=== PATIENT | female | born 1960 | race African-American/Black ===

== ENCOUNTER 2022-03-07 13:46 | Outpatient (CLI) | payer BC, SELFPAY | END 2022-03-07 13:47 | disposition home or self-care (01) | LOC: ANHAUDIO 13:48 | PROVIDERS: PCP Family Medicine; Visit Provider Otolaryngology | DX: H91.91 Unspecified hearing loss, right ear (principal) | CPT/HCPCS: 92557; 92567 ==

== ENCOUNTER 2022-10-02 00:48 | Day surgery (SDC) | payer BC, SELFPAY ==
[2022-09-21 09:21] VITALS: BMI 37.3
[2022-10-02 09:01] VITALS: BP 146/93; PULSE 94; RESP 18; TEMP 35.9; O2SAT 99
[2022-10-02 09:19] LABS: Glucose Point of Care 121 mg/dl (65-105)
[2022-10-02] MEDS: LACTATED RINGERS 1,000 ML 150 ML IV CONT (09:28)
--- NOTE | 2022-10-02 09:33 | PM.HPGS ---
History of Present Illness History of Present Illness Consent: Risks, benefits, and alternatives have been discussed and questions answered. Patient agrees to proceed with procedure. Chief complaint: neoplasm screening Narrative: Monica Chen is a 62 year old female Presents for screening colonoscopy. Patient's current weight appetite and bowel movements are normal. Patient denies abdominal pain. She has had no bleeding. Family history noncontributory. Review of Systems Review of Systems: Review of systems noncontributory. [facility] Past Medical History Medical History Diabetes Heel spur Hypertension Mild persistent asthma with exacerbation Mixed hyperlipidemia Obstructive sleep apnea syndrome Vitamin D deficiency Surgical History Surgical History History of cholecystectomy History of foot surgery heel spur removal History of shoulder surgery Family History Family History Father Diabetes mellitus Hypertension Family history of diabetes mellitus in first degree relative Family history of coronary artery disease Patient's father is Sibling Diabetes mellitus Hypertension Family history of gout Family history of coronary artery disease Family history of type 2 diabetes mellitus Patient's brother is in good health Family history of cardiovascular disease Family history of congestive heart failure Mother Family history of hypercholesterolemia Hypertension Family history of elevated blood lipids Grandparent Cerebrovascular accident Social History Social History Smoking status: Never smoker Second hand tobacco smoke exposure: No Alcohol intake: never Substance use: never Substance use type: does not use Living arrangements: with family Gender identity (if verbalized by the patient): Female Spiritual care concerns: No Meds Home Medications and Allergies Home Medications Medication Instructions Recorded Confirmed Type fexofenadine 180 mg tablet 180 mg PO DAILY #30 tabs 10/31/20 09/21/22 Rx (Allergy Relief (fexofenadine)) albuterol sulfate 90 mcg/actuation 1 inh inhalation Q4H PRN shortness 03/20/22 09/21/22 Rx aerosol inhaler of breath or wheezing #8.5 grams metformin 500 mg tablet See Rx Instructions .Route 07/06/22 09/21/22 Rx .COMPLEX #60 tabs dapagliflozin 5 mg tablet (Farxiga) 5 mg PO DAILY #30 tabs 08/06/22 09/21/22 Rx losartan 50 mg tablet 50 mg PO DAILY #30 tabs 08/11/22 09/21/22 Rx ergocalciferol (vitamin D2) 1,250 1,250 mcg PO WEEKLY #14 caps 08/21/22 09/21/22 Rx mcg (50,000 unit) capsule (Vitamin D2) montelukast 10 mg tablet 10 mg PO DAILY #90 tabs 08/21/22 09/21/22 Rx (Singulair) sodium,potassium,mag sulfates 17.5 See Rx Instructions PO .COMPLEX 09/03/22 09/21/22 Rx gram-3.13 gram-1.6 gram oral soln #354 mL (Suprep Bowel Prep Kit) hydrochlorothiazide 12.5 mg tablet See Rx Instructions .Route 09/14/22 09/21/22 Rx .COMPLEX #90 tabs amlodipine 10 mg tablet See Rx Instructions .Route 09/30/22 10/02/22 Rx .COMPLEX #90 tabs simvastatin 20 mg tablet See Rx Instructions .Route 09/30/22 10/02/22 Rx .COMPLEX #90 tabs Allergies Allergy/AdvReac Type Severity Reaction Status Date / Time codeine Allergy Unknown Vomiting Verified 10/02/22 09:00 Vital Signs Vital Signs - 24 hr 10/02/22 09:01 Temperature 96.7 F L Pulse Rate 94 Respiratory Rate 18 Blood Pressure 146/93 H Pulse Oximetry 99 Oxygen Delivery Room Air Exam Narrative: Physical exam reveals patient to be alert. Vital signs stable. HEENT exam is unremarkable. Patient is anicteric. Lungs are clear to auscultation and percussion. Heart is without murmur or extra sounds. Abdomen bowel soun
--- NOTE | 2022-10-02 10:03 | WPDANESEPPF ---
Anes - Initial Pre Proc Eval Procedure: Operation Date: 10/02/22 10:30 Proposed Procedures p Screening Colonoscopy - Jh Siddiqui MD Date/Time: 10/02/22 10:03 Surgeon: Jh Siddiqui MD Pre Op Diagnosis: neoplasm screening Patient Data Age: 62 Gender: F Height: 1.7 m Weight: 99.6 kg Last Vital Signs Temp 96.7 F L 10/02/22 09:01 Pulse 94 10/02/22 09:01 Resp 18 10/02/22 09:01 BP 146/93 H 10/02/22 09:01 Pulse Ox 99 10/02/22 09:01 O2 Del Method Room Air 10/02/22 09:01 Allergies Allergy/AdvReac Type Severity Reaction Status Date / Time codeine Allergy Unknown Vomiting Verified 10/02/22 09:00 Home Medications Medication Instructions Recorded Confirmed Type fexofenadine 180 mg tablet 180 mg PO DAILY #30 tabs 10/31/20 09/21/22 Rx (Allergy Relief (fexofenadine)) albuterol sulfate 90 mcg/actuation 1 inh inhalation Q4H PRN shortness 03/20/22 09/21/22 Rx aerosol inhaler of breath or wheezing #8.5 grams metformin 500 mg tablet See Rx Instructions .Route 07/06/22 09/21/22 Rx .COMPLEX #60 tabs dapagliflozin 5 mg tablet (Farxiga) 5 mg PO DAILY #30 tabs 08/06/22 09/21/22 Rx losartan 50 mg tablet 50 mg PO DAILY #30 tabs 08/11/22 09/21/22 Rx ergocalciferol (vitamin D2) 1,250 1,250 mcg PO WEEKLY #14 caps 08/21/22 09/21/22 Rx mcg (50,000 unit) capsule (Vitamin D2) montelukast 10 mg tablet 10 mg PO DAILY #90 tabs 08/21/22 09/21/22 Rx (Singulair) sodium,potassium,mag sulfates 17.5 See Rx Instructions PO .COMPLEX 09/03/22 09/21/22 Rx gram-3.13 gram-1.6 gram oral soln #354 mL (Suprep Bowel Prep Kit) hydrochlorothiazide 12.5 mg tablet See Rx Instructions .Route 09/14/22 09/21/22 Rx .COMPLEX #90 tabs amlodipine 10 mg tablet See Rx Instructions .Route 09/30/22 10/02/22 Rx .COMPLEX #90 tabs simvastatin 20 mg tablet See Rx Instructions .Route 09/30/22 10/02/22 Rx .COMPLEX #90 tabs Laboratory Tests 10/02/22 09:08 POC Capillary Glucose 121 mg/dl H mg/dl (65-105) Patient hx anesthesia problems: none Family hx anesthesia problems: none Results Review: All pre-operative results and documents have been reviewed as part of the pre-operative evaluation. [facility] Past Medical History Medical History Diabetes Heel spur Hypertension Mild persistent asthma with exacerbation Mixed hyperlipidemia Obstructive sleep apnea syndrome Vitamin D deficiency Surgical History Surgical History History of cholecystectomy History of foot surgery heel spur removal History of shoulder surgery Family History Family History Father Diabetes mellitus Hypertension Family history of diabetes mellitus in first degree relative Family history of coronary artery disease Patient's father is Sibling Diabetes mellitus Hypertension Family history of gout Family history of coronary artery disease Family history of type 2 diabetes mellitus Patient's brother is in good health Family history of cardiovascular disease Family history of congestive heart failure Mother Family history of hypercholesterolemia Hypertension Family history of elevated blood lipids Grandparent Cerebrovascular accident Social History Social History Smoking status: Never smoker Second hand tobacco smoke exposure: No Alcohol intake: never Substance use: never Substance use type: does not use Living arrangements: with family Gender identity (if verbalized by the patient): Female Spiritual care concerns: No Anes - Eval Final PreProcedure Day of Procedure 10/02/22 10:03 Patient weight: normal Heart: regular rate and rhythm Lungs: clear to auscultation Airway: Mallampati scale class II Neurologic
[2022-10-02] MEDS: SIMETHICONE ORAL SUSPENSION 20 MG/0.3 ML 30 ML BOTTLE 0.6 ML IRRIGATION (10:13)
[2022-10-02 10:26] VITALS: BP 93/64; PULSE 81; RESP 26; O2SAT 96
[2022-10-02 10:36] VITALS: BP 112/77; PULSE 76; RESP 25; O2SAT 98
[2022-10-02 10:46] VITALS: BP 118/86; PULSE 62; RESP 16; O2SAT 97
== END 2022-10-02 11:03 | disposition home or self-care (01) ==
PROVIDERS: PCP Family Medicine; Visit Provider Internal Medicine Gastroenterology
PROC: 0DJD8ZZ Inspection of Lower Intestinal Tract, Via Natural or Artificial Opening Endoscopic (ICD-10-PCS; CPT 45378; principal; 2022-10-02 10:30)
DX: Z12.11 Encounter for screening for malignant neoplasm of colon (principal); K64.8 Other hemorrhoids; K57.30 Diverticulosis of large intestine without perforation or abscess without bleeding; E11.9 Type 2 diabetes mellitus without complications; I10 Essential (primary) hypertension; J45.30 Mild persistent asthma, uncomplicated; E78.2 Mixed hyperlipidemia; G47.33 Obstructive sleep apnea (adult) (pediatric); E55.9 Vitamin D deficiency, unspecified; Z79.51 Long term (current) use of inhaled steroids; Z79.84 Long term (current) use of oral hypoglycemic drugs
CPT/HCPCS: 45378; 82948; J2704; J7120

== ENCOUNTER 2024-09-22 09:56 | Outpatient (CLI) | payer MEDICARE, SELFPAY ==
[2024-09-22 10:48] LABS: Basophils Percent Auto 0.9 % (0.2-1.2); Eosinophils Absolute Auto 0.1 K/mm3 (0-0.3); Eosinophils Percent Auto 3.1 % (0-4.4); Hematocrit 47.6 % (37.0-47.0); Hemoglobin 14.3 g/dL (12.0-15.0); Immature Granulocyte Absolute 0.01 K/mm3 (0.00-0.031); Immature Granulocyte Percent A 0.2 % (0-0.5); Lymphocytes Absolute Auto 2.12 K/mm3 (0.9-3.2); Lymphocytes Percent Auto 50.1 % (18.3-44.2); Mean Corpuscular Hemoglobin 23.3 pg (26-34); Mean Corpuscular Volume 77.7 fl (80-100); Mean Platelet Volume 10.5 fl (7.4-10.4); Monocytes Absolute Auto 0.4 K/mm3 (0.1-0.6); Monocytes Percent Auto 9.2 % (2.6-8.5); Neutrophils Absolute Auto 1.5 K/mm3 (1.3-6.7); Neutrophils Percent Auto 36.5 % (45.5-73.1); Platelet Count Result 285 k/mm3 (150-375); Red Blood Count 6.13 M/mm3 (4.2-5.4); Red Cell Distribution Width 15.6 % (11.5-14.5); White Blood Count 4.2 K/mm3 (4.5-10.0)
[2024-09-22 11:07] LABS: Alanine Aminotransferase 28 U/L (6-35); Albumin Level 4.6 g/dL (3.5-5.1); Alkaline Phosphatase 49 U/L (38-126); Anion Gap 11 mmol/L (4-12); Aspartate Amino Transferase 24 U/L (14-36); Bilirubin,Total 0.9 mg/dL (0.2-1.3); Blood Urea Nitrogen 18 mg/dL (7-17); Calcium 9.8 mg/dL (8.4-10.2); Carbon Dioxide 28 mmol/L (22-30); Chloride 102 mmol/L (98-107); Cholesterol 195 mg/dL (0-200); Estimated Glomerular Filt Rate > 60; Glucose 110 mg/dL (65-110); HDL Direct 61 mg/dL; Potassium 3.9 mmol/L (3.4-5.0); Sodium 141 mmol/L (137-145); Triglycerides 111 mg/dL (<150)
[2024-09-22 11:18] LABS: LDL Cholesterol Direct 87 mg/dL
[2024-09-22 11:27] LABS: MALB Creatinine Ratio 33.6 mg/g (0-30); Microalbumin Urine Random 51.8 mg/L (0-16.7)
--- OUTSIDE RECORDS SUMMARY | 2024-09-22 11:30 | XMS_ITS | Referral Summary ---
Author Organization [facility] Address [address] [facility] [place] [address] Care Team Providers Care Hoop Riveter Name Role Phone Stephanie Sam MD Primary Care Provider [phone] Allergies Active Allergy Reactions Criticality Noted Date Comments Codeine Stomach upset Low 11/28/2022 Medications No known medications Active Problems No known active problems Social History Tobacco Use Types Packs/Day Years Used Date Smoking Tobacco: Never Assessed Personal Safety Answer Date Recorded Getting School Help Needed Not on file 09/13 Comments Unknown Sex and Gender Information Value Date Recorded Sex Assigned at Not on file 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
--- OUTSIDE RECORDS SUMMARY | 2024-09-22 11:30 | XMS_ITS | Clinical Summary ---
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 Gender Identity Not on file Sexual Orientation Not on file Plan of Treatment Health Maintenance Due Date Last Done Comments Hepatitis C Virus (HCV) Screening 1960 TdaP Immunization 1959 Pap Smear 1980 Cervical Cancer Screening (CCS) 1989 HPV/Cotest 1989 Colonoscopy 2004 Colorectal Cancer Screening 2004 Cologuard 2009 Immunochemical Fecal Occult Blood 2009 Mammogram 2009 Pneumococcal Immunization (5 0+ years) (1 of 1 - PCV) 2009 Zoster Immunization (1 of 2) 2009 Influenza Immunization (#1) 2024 SARS-COV-2 Immunization (2023-25 season) 2024 Respiratory Syncytial Virus (RSV) Immunization (Adult) (1 - 1-dose 75+ series) 2034 Hepatitis B Immunization Aged Out No longer eligible based on patient's age to complete this topic Meningococcal Immunization (ACWY) Aged Out No longer eligible based on patient's age to complete this topic Pneumococcal Immunization Combined Aged Out No longer eligible based on patient's age to complete this topic Rotavirus Immunization Aged Out No lo nger eligible based on patient's age to complete this topic
--- OUTSIDE RECORDS SUMMARY | 2024-09-22 11:30 | XMS_ITS | Clinical Summary ---
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 Gender Identity Not on file Sexual Orientation Not on file Plan of Treatment Health Maintenance Due Date Last Done Comments Breast Cancer Screening-Mammogram 1959 Cervical Cancer Screening 1959 Colon Cancer Screening-Colonoscopy 1959 Depression Screening 1959 Fall Risk Assessment 1959 Hepatitis C Screening 1959 Osteoporosis Screening-Bone Density Scan 1959 Hepatitis B Screening 1977 Pneumococcal vaccine 65+ (1 of 1 - PCV) 2009 Zoster Vaccine (1 of 2) 2009 Covid-19 Vaccine (3 - 2023- season) 03/01/202405/2022, 10/07/2020 Influenza Vaccine (#1) 2024 Well Visit 65+ 2024 DTaP/Tdap/Td Vaccine (2 - Td or Tdap) 08/16/2032 Insurance [facility] Member Subscriber Plan / Payer (Ef fective 1993-Present) Name:Gustavo Monica B Relation to Subscriber:Self Name:Chen Monica Jeremie Payer ID:[id number] (NAIC) Group ID:[id number] Type:[employer] Address: [address] Care Teams As400 Administrator Relationship Specialty Start Date End Date Stephanie Sam MD PCP - General Family Medicine 04/13/19
[2024-09-22 11:37] LABS: Thyroid Stimulating Hormone 0.891 uIU/mL (0.465-4.680)
[2024-09-22 11:38] LABS: Free T4 Free Thyroxine 1.01 ng/dL (0.78-2.19)
[2024-09-22 15:50] LABS: Hemoglobin A1C 6.2 % (<5.7)
== END 2024-09-22 09:57 | disposition home or self-care (01) ==
LOC: ANHLAB 10:00
PROVIDERS: PCP Family Medicine; Visit Provider Student in an Organized Health Care Education/Training Program
DX: R53.83 Other fatigue (principal); I10 Essential (primary) hypertension; E78.2 Mixed hyperlipidemia; E11.9 Type 2 diabetes mellitus without complications; E55.9 Vitamin D deficiency, unspecified
CPT/HCPCS: 36415; 80053; 80061; 82043; 82306; 83036; 84439; 84443; 85025

== ENCOUNTER 2024-10-23 09:40 | Outpatient (CLI) | payer MEDICARE, SELFPAY ==
--- OUTSIDE RECORDS SUMMARY | 2024-10-23 09:51 | XMS_ITS | Referral Summary ---
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
--- OUTSIDE RECORDS SUMMARY | 2024-10-23 09:51 | XMS_ITS | Clinical Summary ---
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
--- OUTSIDE RECORDS SUMMARY | 2024-10-23 09:51 | XMS_ITS | Clinical Summary ---
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 Gender Identity Not on file Sexual Orientation [...] of 2) 2009 Covid-19 Vaccine (3 - season) 03/01/202405/2022, 10/07/2020 Well Visit 65+ 2024 Influenza Vaccine (Season Ended) 2025 DTaP/Tdap/Td Vaccine (2 - Td or Tdap) 08/16/2032 Insurance [facility]ITIONAL [facility] Member Subscriber Plan / Payer (Ef fective 1993-Present) Name:Gustavo Monica B Relation to Subscriber:Self Name:Chen Monica Jeremie Payer ID:[id number] (NAIC) Group ID:[id number] Type:Hycrete Address: [address] Care Teams Core Stacker Relationship Specialty Start Date End Date Stephanie Sam MD PCP - General Family Medicine 04/13/19
[2024-10-23 10:02] LABS: Basophils Absolute Auto 0.1 K/mm3 (0.0-0.1); Basophils Percent Auto 1.3 % (0.2-1.2); Eosinophils Absolute Auto 0.2 K/mm3 (0-0.3); Hematocrit 45.5 % (37.0-47.0); Hemoglobin 13.6 g/dL (12.0-15.0); Immature Granulocyte Absolute 0.01 K/mm3 (0.00-0.031); Immature Granulocyte Percent A 0.2 % (0-0.5); Lymphocytes Percent Auto 45.8 % (18.3-44.2); Mean Corpuscular HGB Conc 29.9 g/dl (32-36); Mean Corpuscular Hemoglobin 23.2 pg (26-34); Mean Corpuscular Volume 77.5 fl (80-100); Mean Platelet Volume 10.1 fl (7.4-10.4); Monocytes Absolute Auto 0.5 K/mm3 (0.1-0.6); Monocytes Percent Auto 10.6 % (2.6-8.5); Neutrophils Absolute Auto 1.8 K/mm3 (1.3-6.7); Neutrophils Percent Auto 38.1 % (45.5-73.1); Platelet Count Result 237 k/mm3 (150-375); Red Blood Count 5.87 M/mm3 (4.2-5.4); Red Cell Distribution Width 14.4 % (11.5-14.5); White Blood Count 4.8 K/mm3 (4.5-10.0)
[2024-10-23 10:17] LABS: Iron 86 ug/dL (37-170)
[2024-10-23 10:28] LABS: Percent Iron Saturation 24 % (20-50)
[2024-10-23 10:30] LABS: Hypochromasia 1+; Platelet Estimate Adequate (Adequate)
[2024-10-23 10:31] LABS: Giant Platelets Present; Large Platelets Present; Schistocytes None Seen
[2024-10-23 11:18] LABS: Folic Acid 5.8 ng/mL (2.76->20)
== END 2024-10-23 09:41 | disposition home or self-care (01) ==
LOC: ANHLAB 09:41
PROVIDERS: PCP Family Medicine; Visit Provider Student in an Organized Health Care Education/Training Program
DX: D64.9 Anemia, unspecified (principal)
CPT/HCPCS: 36415; 82607; 82728; 82746; 83540; 83550; 85025

== ENCOUNTER 2024-12-04 10:05 | Outpatient (CLI) | payer MEDICARE, SELFPAY ==
--- NOTE | ~2024-12-04 | DEXA_ITS ---
Bone Density Report Name: CALE GARCIA Age: 64 Sex: Female Ethnicity: White Date of : 1960 Indication: postmenopausal; screening for osteoporosis; asthma or emphysema; Referring Provider: HAYLEY CABRAL Study: Bone densitometry was performed. Exam Date: December 04, 2024 Accession number: [id number] Bone Density: Region BMD T-score Z-score Classification AP Spine(L1-L4) 1.436 3.5 5.3 Normal Femoral Neck (Left) 0.850 0.0 1.5 Normal Total Hip (Left) 1.015 0.6 1.8 Normal Femoral Neck (Right) 0.886 0.3 1.9 Normal Total Hip (Right) 1.012 0.6 1.8 Normal Total Hip Mean 1.013 0.6 1.8 Normal World Health Organization criteria for BMD impression classify patients as: Normal (T-score at or above -1.0), Osteopenia (T-score between -1.0 and -2.5), or Osteoporosis (T-score at or below -2.5). 10-year Fracture Risk: FRAX not reported because: All T-scores for Spine Total, Hip Total, Femoral Neck at or above -1.0 Clinical Information Provided by Patient: Has used the following medications: Vitamin D Has the following medical conditions: Asthma or Emphysema Patient maximum height was 67.25 No regular weight bearing exercise Drinks caffeinated beverages Onset of menses at age 11 Number of children 0 Impression: The patient has normal bone mass. Discussion: BONE DENSITY IS ABOVE THE MINIMUM DESIRABLE LEVEL AT ALL SKELETAL SITES TESTED. This patient?s bone mineral density is above the minimum desirable level (T-score -1.0 or better) at all sites measured. The patient should follow a healthful lifestyle (good nutrition with adequate calcium and vitamin D, and appropriate weight-bearing exercise). Follow-Up: Consider repeating this study in 5 years or sooner if there is some new clinical indication. Reported by: LYLY on 12/04/2024 10:59:00 AM. Reviewed, dictated and finalized at location A.
--- OUTSIDE RECORDS SUMMARY | 2024-12-04 10:13 | XMS_ITS | Clinical Summary ---
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
--- OUTSIDE RECORDS SUMMARY | 2024-12-04 10:13 | XMS_ITS | Clinical Summary ---
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 Gender Identity Not on file Sexual Orientation Not on file Plan of Treatment Upcoming Encounters Date Type Department Care Team (Late st Contact Info) Description 03/29/2025 10:30 AM CDT Office Visit [facility] Oncology and Hematology - [place] [address] [place] [address] [facility] [address] [place] [address] Angelo Fuchs MD [address] [facility] [address] [place] [address] Health Maintenance Due Date Last Done Comments DTAP/TDAP/TD VACCINES (1 - Tdap) 1978 BREAST CANCER SCREENING 1999 COLORECTAL SCREENING 2004 Colorectal Cancer Screening 2004 FIT-DNA Q 3 years 2004 FIT/FOBT Q 1 year 2004 Flex Sig/CT Colonography Q 5 years 2004 PNEUMOCOCCAL VACCINE 50+ YEARS (1 of 1 - PCV) 08/19/19 10 ZOSTER VACCINE (1 of 2) 2009 INFLUENZA VACCINE (#1) 2024 OSTEOPOROSIS SCREENING 2024 RSV VACCINE (60+ or ) (1 - 1-dose 75+ series) 2034 Care Teams Disease Management Nurse Relationship Specialty Start Date End Date Jony Miles MD [address] [place] [address] PCP - General 05/13/02
--- OUTSIDE RECORDS SUMMARY | 2024-12-04 10:13 | XMS_ITS | Encounter Summary ---
Author Organization [email or web address] Address 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 Gender Identity Not on file Sexual Orientation Not on file documented as of this encounter Plan of Treatment Upcoming Encounters Date Type Department Care Team (Late st Contact Info) Description 03/29/2025 10:30 AM CDT Office Visit [facility] Oncology and Hematology - [place] [address] [facility] [address] [place] [address] Angelo Fuchs MD [address] [facility] [address] [place] [address] documented as of this encounter Visit Diagnoses Diagnosis Other affections of shoulder region, not elsewhere classified- Primary documented in this encounter Care Teams Pond Tender Relationship Specialty Start Date End Date Jony Miles MD [address] [place] [address] PCP - General 05/13/02 documented as of this encounter
--- OUTSIDE RECORDS SUMMARY | 2024-12-04 10:13 | XMS_ITS | Clinical Summary ---
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
--- OUTSIDE RECORDS SUMMARY | 2024-12-04 10:13 | XMS_ITS | Referral Summary ---
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
== END 2024-12-04 10:06 | disposition home or self-care (01) ==
LOC: ANHIMG 10:06
PROVIDERS: PCP Family Medicine; Visit Provider Student in an Organized Health Care Education/Training Program
DX: Z13.820 Encounter for screening for osteoporosis (principal); Z78.0 Asymptomatic menopausal state
CPT/HCPCS: 77080

== ENCOUNTER 2025-01-21 11:12 | Outpatient (CLI) | payer MEDICARE, SELFPAY ==
--- OUTSIDE RECORDS SUMMARY | 2025-01-21 11:16 | XMS_ITS | Encounter Summary ---
Author Organization [facility] Address 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 Gender Identity Not on file Sexual Orientation Not on file documented as of this encounter Plan of Treatment Upcoming Encounters Date Type Department Care Team (Late st Contact Info) Description 03/29/2025 10:30 AM CDT Office Visit [facility] Oncology and Hematology - [place] [address] [facility] [address] [place] [address] Angelo Fuchs MD [address] [facility] [address] [place] [address] documented as of this encounter Visit Diagnoses Diagnosis Other affections of shoulder region, not elsewhere classified- Primary documented in this encounter Care Teams Safety Admin Assistant Relationship Specialty Start Date End Date Jony Miles MD [address] [place] [address] PCP - General 05/13/02 documented as of this encounter
--- OUTSIDE RECORDS SUMMARY | 2025-01-21 11:16 | XMS_ITS | Clinical Summary ---
Author Organization [facility] Address [address] [place] [address] Care Team Providers Care Calciner Operator Helper Name Role Phone Stephanie Sam MD Primary Care Provider [phone] Allergies Active Allergy Reactions Criticality Noted Date [...] on file Legal Sex Female 8:03 PM C CONSULTANT Gender Identity Not on file Sexual [...] 10/07/2020 Well Visit 65+ 2024 Influenza Vaccine (#1) 2025 DTaP/Tdap/Td Vaccine (2 - Td or Tdap) 08/16/2032 Insurance [facility] Member Subscriber Plan / Payer (Ef fective 1993-Present) Name:Gustavo Monica B Relation to Subscriber:Self Name:Chen Monica Jeremie Payer ID:[id number] (NAIC) Group ID:[id number] Type:[facility] Address: [address] Care Teams Calciner Operator Helper Relationship Specialty Start Date End Date Stephanie Sam MD PCP - General Family Medicine 04/13/19
--- OUTSIDE RECORDS SUMMARY | 2025-01-21 11:16 | XMS_ITS | Referral Summary ---
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
--- OUTSIDE RECORDS SUMMARY | 2025-01-21 11:16 | XMS_ITS | Clinical Summary ---
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 Oncology and Hematology - [place] [address] [place] [address] [facility] [address] [place] [address] Angelo Fuchs MD [address] [facility] [address] [place] [address] Health Maintenance Due Date Last Done Comments DTAP/TDAP/TD VACCINES (1 - Tdap) 1978 BREAST CANCER SCREENING 1999 COLORECTAL SCREENING 2004 Colorectal Cancer Screening 2004 FIT-DNA Q 3 years 2004 FIT/FOBT Q 1 year 2004 Flex Sig/CT Colonography Q 5 years 2004 PNEUMOCOCCAL VACCINE 50+ YEARS (1 of 1 - PCV) 08/19/19 10 ZOSTER VACCINE (1 of 2) 2009 OSTEOPOROSIS SCREENING 2024 INFLUENZA VACCINE (#1) 2025 RSV VACCINE (60+ or ) (1 - 1-dose 75+ series) 2034 Care Teams Glue Mounter Operator Relationship Specialty Start Date End Date Jony Miles MD [address] [place] [address] PCP - General 05/13/02
--- OUTSIDE RECORDS SUMMARY | 2025-01-21 11:16 | XMS_ITS | Clinical Summary ---
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
[2025-01-21 13:55] LABS: Hemoglobin A1C 6.5 % (<5.7)
== END 2025-01-21 11:13 | disposition home or self-care (01) ==
LOC: ANHGOSHLAB 11:12
PROVIDERS: PCP Family Medicine; Visit Provider Student in an Organized Health Care Education/Training Program
DX: E11.9 Type 2 diabetes mellitus without complications (principal)
CPT/HCPCS: 36415; 83036

== ENCOUNTER 2025-03-11 12:55 | Outpatient (CLI) | payer MEDICARE, SELFPAY ==
--- NOTE | ~2025-03-11 | MM_ITS ---
EXAMINATION: MM screening allan BI w jayson HISTORY: Screening TECHNIQUE: Craniocaudal and mediolateral oblique 3-D tomosynthesis images were obtained and synthetic 2-D images were generated. CAD analysis was submitted and interpreted. COMPARISON: None provided BREAST PARENCHYMAL COMPOSITION: There are scattered areas of fibroglandular density. FINDINGS: There is no evidence of suspicious mass, calcification, or architectural distortion to suggest malignancy in either breast. IMPRESSION: 1. No mammographic evidence of malignancy. 2. Recommend routine screening mammography in one year. BI-RADS Category 1: Negative Reviewed, dictated and finalized at location B.
--- OUTSIDE RECORDS SUMMARY | 2025-03-11 14:37 | XMS_ITS | Clinical Summary ---
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 PORT DIRECTOR Gender Identity Not on file Sexual Orientation Not on file Plan of Treatment Upcoming Encounters Date Type Department Care Team (Late st Contact Info) Description 03/29/2025 10:30 AM CDT Office Visit [facility] Oncology and Hematology - [place] [address] [place] [address] [facility] 200 [place] [address] Angelo Fuhcs MD [address] [facility] [address] [place] [address] Health Maintenance Due Date Last [...] - 1-dose 75+ series) 2034 Care Teams Sheriff Deputy Relationship Specialty Start Date End Date Jony Miles MD [address] [place] [address] PCP - General 05/13/02
--- OUTSIDE RECORDS SUMMARY | 2025-03-11 14:37 | XMS_ITS | Encounter Summary ---
Author Organization [facility] Address 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 Gender Identity Not on file Sexual Orientation Not on file documented as of this encounter Plan of Treatment Upcoming Encounters Date Type Department Care Team (Late st Contact Info) Description 03/29/2025 10:30 AM CDT Office Visit [facility] Oncology and Hematology - Billy [address] [facility] [address] [place] [address] Angelo Fuchs MD [address] [facility] [address] [place] [address] documented as of this encounter Visit Diagnoses Diagnosis Other affections of shoulder region, not elsewhere classified- Primary documented in this encounter Care Teams Thermometer Production Worker Relationship Specialty Start Date End Date Jony Miles MD [address] [place] [address] PCP - General 05/13/02 documented as of this encounter
--- OUTSIDE RECORDS SUMMARY | 2025-03-11 14:37 | XMS_ITS | Clinical Summary ---
Author Organization [facility] Care Team Providers Care Friction Welding Machine Operator Name Role Phone Unavailable Primary Care Provider Unavailabl e Social History Tobacco Use Types Packs/Day Years Used Date Smoking Tobacco: Never Assessed Comments Unknown Sex and Gender Information Value Date Recorded Sex Assigned at Not on file Legal Sex Female 3:11 PM QUALITY MANAGER Gender Identity Not on file Sexual Orientation Not on file Plan of Treatment Health Maintenance Due Date Last Done Comments Hepatitis C Virus (HCV) Screening 1960 TdaP Immunization 1959 Pap Smear 1980 Cervical Cancer Screening (CCS) 1989 HPV/Cotest 1989 Cologuard 2004 Colonoscopy 2004 Colorectal Cancer Screening 2004 Immunochemical Fecal Occult Blood 2004 Pneumococcal Immunization (5 0+ years) (1 of 1 - PCV) 2009 Zoster Immunization (1 of 2) 2009 SARS-COV-2 Immunization (1 - season) 2024 Influenza Immunization (#1) 2025 Respiratory Syncytial Virus (RSV) Immunization (Adult) (1 - 1-dose 75+ series) 2034 Hepatitis B Immunization Aged Out No longer eligible based on patient's age to complete this topic Human Papillomavirus (HPV) Immunization Aged Out No longer eligible b ased on patient's age to complete this topic Meningococcal Immunization (ACWY) Aged Out No longer eligible based on patient's age to complete this topic Rotavirus Immunization Aged Out No lo nger eligible based on patient's age to complete this topic
--- OUTSIDE RECORDS SUMMARY | 2025-03-11 14:37 | XMS_ITS | Clinical Summary ---
Author Organization [facility] Address [address] [facility] [place] [address] Care Team Providers Care Inside Sales Consultant Name Role Phone Stephanie Sam MD Primary Care Provider [phone] Allergies Active Allergy Reactions Criticality Noted Date [...] on file Legal Sex Female 8:03 PM TRADING FLOOR OPERATOR Gender Identity Not on file Sexual Orientation [...] 2009 Zoster Vaccine (1 of 2) 2009 Well Visit 65+ 2024 Covid-19 Vaccine (3 - 2024- season) 03/01/202505/2022, 10/07/2020 Influenza Vaccine (#1) 2025 DTaP/Tdap/Td Vaccine (2 - Td or Tdap) 08/16/2032 Insurance [facility] Member Subscriber Plan / Payer (Ef fective 1993-Present) Name:Gustavo Monica B Relation to Subscriber:Self Name:Chen Monica Jeremie Payer ID:[id number] (NAIC) Group ID:[id number] Type:[employer] Address: [address] Care Teams Inside Sales Consultant Relationship Specialty Start Date End Date Stephanie Sam MD PCP - General Family Medicine 04/13/19
== END 2025-03-11 12:56 | disposition home or self-care (01) ==
LOC: ANHFOHIMG 12:56
PROVIDERS: PCP Family Medicine; Visit Provider Student in an Organized Health Care Education/Training Program
DX: Z12.31 Encounter for screening mammogram for malignant neoplasm of breast (principal)
CPT/HCPCS: 77063; 77067

== ENCOUNTER 2025-03-23 11:39 | Outpatient (CLI) | payer MEDICARE, SELFPAY ==
--- OUTSIDE RECORDS SUMMARY | 2025-03-23 12:17 | XMS_ITS | Clinical Summary ---
Author Organization [facility] Care Team Providers Care Event Planner Name Role Phone Unavailable Primary Care Provider Unavailabl e Social History Tobacco Use Types Packs/Day Years Used Date Smoking Tobacco: Never Assessed Comments Unknown Sex and Gender Information Value Date Recorded Sex Assigned at Not on file Legal Sex Female 3:11 PM BILINGUAL MANAGER Gender Identity Not on file Sexual [...] of 2) 2009 SARS-COV-2 Immunization (1 - 2023- season) 2024 Influenza Immunization (#1) 2025 Respiratory [...]
--- OUTSIDE RECORDS SUMMARY | 2025-03-23 12:17 | XMS_ITS | Clinical Summary ---
Author Organization [facility] Address [address] [facility] Attn: Epic Prelude ADT MABEL MENDEZ [address] Care Team Providers Care Warble Saw Operator Name Role Phone Jony Miles MD Primary Care Provider [phone] Social History Tobacco Use Types Packs/Day Years Used Date Smoking Tobacco: Never Assessed Comments Unknown Sex and Gender Information Value Date Recorded Sex Assigned at Not on file Legal Sex Female 4:02 AM TRAFFIC RATE CLERK Gender Identity Not on file Sexual Orientation Not on file Plan of Treatment Upcoming Encounters Date Type Department Care Team (Late st Contact Info) Description 03/29/2025 10:30 AM CDT Office Visit [facility] Oncology and Hematology - [place] [address] [place] [address] [facility] [address] [place] [address] Angelo Fuchs MD [address] [facility] [address] [place] [address] Health Maintenance Due Date Last [...] - 1-dose 75+ series) 2034 Care Teams Warble Saw Operator Relationship Specialty Start Date End Date Jony Miles MD [address] [place] [address] PCP - General 05/13/02
--- OUTSIDE RECORDS SUMMARY | 2025-03-23 12:17 | XMS_ITS | Encounter Summary ---
Author Organization [facility] Address 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 Gender Identity Not on file Sexual Orientation Not on file documented as of this encounter Plan of Treatment Upcoming Encounters Date Type Department Care Team (Late st Contact Info) Description 03/29/2025 10:30 AM CDT Office Visit [facility] Oncology and Hematology - Billy [address] [facility] [address] [place] [address] Angelo Fuchs MD [address] [facility] [address] [place] [address] documented as of this encounter Visit Diagnoses Diagnosis Other affections of shoulder region, not elsewhere classified- Primary documented in this encounter Care Teams Branch Chief Relationship Specialty Start Date End Date Jony Miles MD [address] [place] [address] PCP - General 05/13/02 documented as of this encounter
--- OUTSIDE RECORDS SUMMARY | 2025-03-23 12:17 | XMS_ITS | Clinical Summary ---
Author Organization [facility] Address [address] [facility] [place] [address] Care Team Providers Care Freight Broker Agent Name Role Phone Stephanie Sam MD Primary Care Provider [phone] Allergies Active Allergy Reactions Criticality Noted Date [...] on file Legal Sex Female 8:03 PM WEB SPECIALIST Gender Identity Not on file Sexual [...] (2 - Td or Tdap) 08/16/2032 Insurance [facility] Member Subscriber Plan / Payer (Ef fective 1993-Present) Name:Gustavo Monica B Relation to Subscriber:Self Name:Chen Monica Jeremie Payer ID:[id number] (NAIC) Group ID:[id number] Type:[employer] Address: [address] Care Teams Freight Broker Agent Relationship Specialty Start Date End Date Stephanie Sam MD PCP - General Family Medicine 04/13/19
[2025-03-23 12:29] LABS: Alanine Aminotransferase 24 U/L (6-35); Albumin Level 4.5 g/dL (3.5-5.1); Alkaline Phosphatase 53 U/L (38-126); Anion Gap 8 mmol/L (4-12); Aspartate Amino Transferase 27 U/L (14-36); Bilirubin,Total 0.5 mg/dL (0.2-1.3); Blood Urea Nitrogen 17 mg/dL (7-17); Calcium 9.4 mg/dL (8.4-10.2); Carbon Dioxide 29 mmol/L (22-30); Chloride 106 mmol/L (98-107); Estimated Glomerular Filt Rate 56; Glucose 90 mg/dL (65-110); Potassium 3.7 mmol/L (3.4-5.0); Sodium 143 mmol/L (137-145); Total Protein 8.3 g/dL (6.3-8.2)
== END 2025-03-23 11:40 | disposition home or self-care (01) ==
PROVIDERS: PCP Family Medicine; Visit Provider Student in an Organized Health Care Education/Training Program
DX: I10 Essential (primary) hypertension (principal); E78.2 Mixed hyperlipidemia
CPT/HCPCS: 36415; 80053

== ENCOUNTER 2025-03-29 11:07 | Outpatient (CLI) | payer MEDICARE, SELFPAY ==
--- OUTSIDE RECORDS SUMMARY | 2025-03-29 10:30 | XMS_ITS | Encounter Summary ---
Author Organization [facility] Address [address] [place] [address] Care Team Providers Care Speech Language Pathologist Name Role Phone Jony Miles MD Primary Care Provider [phone] Reason for Visit * Reason Comments Establish Care Encounter Details Date Type Department Care Team (Late st Contact Info) Description 03/29/2025 10:30 AM CDT Office Visit [facility] Oncology and Hematology - [place] [address] [place] [address] [address] [place] [address] Angelo Fuchs MD [address] [facility] [address] [place] [address] Microcytosis (Primary Dx); Lymphocytosis Social History Tobacco Use Types Packs/Day Years Used Date Smoking Tobacco: Never Smokeless Tobacco: Never Tobacco Cessation:Counseling Given: Not Answered Alcohol Use Standard Drinks/Week Comments Never 0 (1 standard drink = 0.6 oz pur e alcohol) Comments Unknown Sex and Gender Information Value Date Recorded Sex Assigned at Not on file Legal Sex Female 4:02 AM INTEGRATION ENGINEER Gender Identity Not on file Sexual Orientation Not on file documented as of this encounter Last Filed Vital Signs Vital Sign Reading Time Taken Comments Blood Pressure 150/94 03/29/2025 10:18 AM CDT DID NOT TAKE B/P MEDS THIS MORNING Pulse 79 03/29/2025 10:16 AM CDT Temperature 36.4 C (97.5 F) 03/29/2025 10:16 AM CDT Respiratory Rate 15 03/29/2025 10:1 6 AM CDT Oxygen Saturation 93% 03/29/2025 10: 16 AM CDT Inhaled Oxygen Concentration - - Weight 104.4 kg (230 lb 3.2 oz) 03/29/2025 10:16 AM CDT Height 170.2 cm (5' 7) 03/29/2025 10:1 6 AM CDT Body Mass Index 36.05 03/29/2025 10:16 AM CDT documented in this encounter Progress Notes * Angelo Fuchs MD - 03/29/2025 11:29 AM CDT Hematology-oncology consult Note Requesting Physician Jony Miles MD Primary Care Physician Jony Miles MD Problem list There is no problem list on file for this patient. Previous TREATMENT ? Measurable Disease ? Reason for Visit Monica Chen is a 64 y.o. female who was referred for consultation for lymphocytosis, microcytosis and elevated RBC count. 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 She denies any fevers and chills but has occasional night sweats. 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 She denies any history of thalassemia or any other kind of genetic anemia. Denies any new lumps bumps and lymphadenopathy. Denies any weight loss surgery. Denies being a vegetarian. Denies beingtired and fatigue. Her labs from September 2024 showed elevated RBC count of 5.8 million with MCV of 77.5 and lymphocyte count of 45.8%. Denies any other new complaints. Past Medical History Past Medical History: Diagnosis Date Asthma Diabetes mellitus (CMS/HCC) Hyperlipidemia Hypertension Surgical History Past Surgical History: Procedure Laterality Date HX CHOLECYSTECTOMY HX HEEL SPUR SURGERY HX ROTATOR CUFF REPAIR Medications Current Outpatient Medications Medication Sig Dispense Refill losartan (COZAAR) 50 mg tablet Take 50 mg by mouth daily. hydroCHLOROthiazide 12.5 mg tablet Take 12.5 mg by mouth daily. metFORMIN (GLUCOPHAGE XR) 500 mg Extended Release 24 hour tablet Take 500 mg by mouth daily. simvastatin (ZOCOR) 20 mg tablet Take 20 mg by mouth daily with supper. amLODIPine (NORVASC) 10 mg tablet Take 10 mg by mouth daily. ergocalciferol (VITAMIN D2) 50,000 unit capsule Take 50,000 Units by mouth. fexofenadine (TAMARA) 180 mg tablet Take 180 mg by mouth daily. montelukast (SINGULAIR) 10 mg tablet Take 10 mg by mouth daily at bedtime. albuterol sulfate HFA 90 mcg/actuation aerosol inhaler Take 2 Puffs by inhalation every 6 hours as needed for Shortness of Breath. No current facility-administered medications for this visit. Allergies Allergies Allergen Reactions Codeine Nausea and Vomiting Immunizations: There is no immunization history on file for this patient. Family History Family History Problem Relation Name Age of Onset No Known Problems Mother Heart Disease Brother Diabetes Brother Heart Disease Brother Social History Social History Tobacco Use Smoking status: Never Smokeless tobacco: Never Substance Use Topics Alcohol use: Never Review of Systems Constitutional: Patient did not mention fever; complain of night sweats; no anorexia; no weight loss; no fatique NEENT: Patient did not mention headache; no change in vision; no change in hearing; no sore throat;no dysphagia Respiratory: Patient did not mention shortness of breath; no pleuritic chest pain; no cough; no hemoptysis Cardiac: Patient did not mention cardiac-like chest pain; no palpitations; no orthopnea; no PND; noDOE Breasts: Patient did not mention tenderness; no masses GI: Patient did not mention abdominal pain; no nausea; no vomiting; no diarrhea; no hematochezia; no melena : Patient did not mention dysuria; no frequency; no hesitancy; no hematuria 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 OR TRUCK RENTAL 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 No signs of infection or swelling. Eyes: PERRL, conjunctiva normal HEENT: Atraumatic, external ears normal, nose normal, oropharynx moist, no pharyngeal exudates. no sinus tenderness Neck- normal range of motion, no tenderness, supple Respiratory: No respiratory distress, normal breath sounds, no rales, no wheezing Cardiovascular: Normal rate, normal rhythm, no murmurs, no gallops, no rubs GI: Soft, nondistended, normal bowel sounds, nontender, no splenomegaly, no hepatomegaly, no mass, no rebound, no guarding : No costovertebral angle tenderness Musculoskeletal: No edema, no tenderness, no deformities. Back- no tenderness Integument: Well hydrated, no rash, Digits and nails inspection normal Lymphatic: No lymphadenopathy noted Neurologic: Alert & oriented x 3, CN 2-12 normal, normal motor function, normal sensory function, no focal deficits noted Psychiatric: Speech and behavior appropriate ? labs No results found for this or any previous visit (from the past 24 hours). Labs from September 2024 showed WBC count 4.8 hemoglobin 13.6 hematocrit 45.5 RBC count 5.8 million MCV77.5 neutrophils 38% lymphocytes 45% iron 86 saturation 24% ferritin 52 Pathology ? Imaging & Other Studies Performance Status? Assessment / Plan: ? Lymphocytosis. WBC count is normal. Patient is a 64-year-old female with history of diabetes, hypertension and asthma. She has occasional night sweats. Denies any fevers and chills. She lost 20 poundweight in last 5 years duration. On my examination there is no evidence of lymphadenopathy and hepatosplenomegaly. I have discussed the differential diagnosis of lymphocytosis with the patient. We will order workup that will include flow cytometric analysis for leukemia along with CBC with differential, C-reactive protein and sedimentation rate. I have answered all the questions to patient satisfaction. Microcytosis with elevated RBC count. There is a possibility of underlying thalassemia and genetic anemias. Will order hemoglobin electrophoresis. Hypertension. Patient is on losartan and hydrochlorothiazide. She is also on amlodipine. Type 2 diabetes. Patient is on metformin. Hyperlipidemia. She is on simvastatin. Asthma. Patient is on Singulair and Tamara. Thank you very much for allowing me to participate in Monica Jeremie Chen's evaluation and management. Please feel free to contact if I can be of any further assistance in your patient???s care requiring hematology or oncology evaluation. Sincerely, ? ? Angelo Fuchs M.D. cell TOBACCO COUNSELING She is not a tobacco/nicotine user. Angelo Fuchs MD ,03/29/2025 11:29 AM ? Total time spent 60 minutes, two third of the total time spent counseling patient [id number]. CC:?Jony Miles MD documented in this encounter Plan of Treatment Upcoming Encounters Date Type Department Care Team (Late st Contact Info) Description 04/12/2025 4:30 PM CDT Telephone Check Up [facility] Oncology and Hematology - Billy [address] [facility] [address] [place] [address] Angelo Fuchs MD [address] [facility] [address] [place] [address] Scheduled Orders Name Type Priority Associated Diagnoses Orde r Schedule CBC WITH DIFFERENTIAL Lab Stat Lymphocytosis Expected: 03/29/2025, Expires: 03/29/2026 COMPREHENSIVE METABOLIC PANEL Lab Stat Lymphocytosis Expected: 03/29/2025, Expires: 03/29/2026 C-REACTIVE PROTEIN Lab Routine Lymphocytosis Expected: 03/29/2025, Expires: 03/29/2026 FLOW CYTOMETRY PANEL Lab Routine Lymphocytosis Expected: 03/29/2025, Expires: 03/29/2026 ERYTHROPOIETIN LEVEL Lab Routine Microcytosis Expected: 03/29/2025, Expires: 03/29/2026 SEDIMENTATION RATE Lab Routine Lymphocytosis Expected: 03/29/2025, Expires: 03/29/2026 IRON, TIBC, AND PERCENT SATURATION Lab Routine Microcytosis Expected: 03/29/2025, Expires: 03/29/2026 FERRITIN Lab Routine Microcytosis Expected: 03/29/2025, Expires: 03/29/2026 MISCELLANEOUS LAB TEST Lab Routine Microcytosis Expected: 03/29/2025, Expires: 03/29/2026 documented as of this encounter Visit Diagnoses Diagnosis Microcytosis- Primary Other abnormality of red blood cells Lymphocytosis Lymphocytosis (symptomatic) documented in this encounter Care Teams Speech Language Pathologist Relationship Specialty Start Date End Date Jony Miles MD [address] [place], [place] [id number] PCP - General 05/13/02 documented as of this encounter
--- NOTE | 2025-03-29 11:24 | CY_PTH ---
PATIENT: Monica Chen LOC: [facility] #:[id number] AGE/SX: 64/F ROOM: RE03/29/[address]: Angelo Fuchs MD : 1960 BED: DIS: 03/29/2025 SPEC #: [id number] RECD: 03/29/25 12:50 STATUS: DEVORAH REQ #: [id number] DENNY: 03/29/25 11:[address]: Angelo Fuchs DEPT: [facility] Cytology RECD BY: Henrry Mcadams ENTERED: 03/29/25 12:51 SP TYPE: Cytology OTHR DR: Stephanie SamMD Tissues: A - Peripheral Blood Procedures: Flow Cytometry
[2025-03-29 11:30] LABS: Hematocrit 44.9 % (37.0-47.0); Hemoglobin 13.8 g/dL (12.0-15.0); Immature Granulocyte Percent A 0.2 % (0-0.5); Lymphocytes Absolute Auto 2.00 K/mm3 (0.9-3.2); Mean Corpuscular HGB Conc 30.7 g/dl (32-36); Mean Corpuscular Hemoglobin 23.6 pg (26-34); Mean Corpuscular Volume 76.8 fl (80-100); Nucleated Red Blood Cells Absolute Auto 0.000 K/mm3 (0.0-0.012); Nucleated Red Blood Cells Perc 0.0 % (0.0-0.2); Platelet Count Result 276 k/mm3 (150-375); Red Blood Count 5.85 M/mm3 (4.2-5.4); White Blood Count 4.3 K/mm3 (4.5-10.0)
--- OUTSIDE RECORDS SUMMARY | 2025-03-29 11:46 | XMS_ITS | Clinical Summary ---
Author Organization [facility] Agustinsiobhanbrooklyn Bright[facility] Address [address] [place] [place] [address] Care Team Providers Care Punch Machine Hand Name Role Phone Jony Miles MD Primary Care Provider [phone] Allergies Active Allergy Reactions Criticality Noted Date Comments Codeine Nausea and Vomiting Low 03/29/2025 Medications losartan (COZAAR) 50 mg tablet Take 50 mg by mouth daily. Active hydroCHLOROthia zide 12.5 mg tablet Take 12.5 mg by mouth daily. Active metFORMIN (GLUCOPHAGE XR) 500 mg Extended Release 24 hour tablet Take 500 mg by mouth daily. Active simvastatin (ZOCOR) 20 mg tablet Take 20 mg by mouth daily with supper. Active amLODIPine (NORVASC) 10 mg tablet Take 10 mg by mouth daily. Active ergocalciferol (VITAMIN D2) 50,000 unit capsule Take 50,000 Units by mouth. Active fexofenadine (RUSSELL) 180 mg tablet Take 180 mg by mouth daily. Active montelukast (SINGULAIR) 10 mg tablet Take 10 mg by mouth daily at bedtime. Active albuterol sulfate HFA 90 mcg/actuation aerosol inhaler Take 2 Puffs by inhalation every 6 hours as needed for Shortness of Breath. Active Active Problems No known active problems Encounters Date Type Department Care Team Description 03/29/2025 10:30 AM CDT Office Visit [facility] Oncology and Hematology - [place] [address] [place] [address] Angelo Fuchs MD Microcytosis (Primary Dx); Lymphocytosis from Last 3 Months Family History Medical History Relation Name Comments Heart Disease Brother 1 Diabetes Brother 2 Heart Disease Brother 2 No Known Problems Mother Relation Name Status Comments Brother 1 Alive Brother 2 Alive Father Mother Alive Social History Tobacco Use Types Packs/Day Years Used Date Smoking Tobacco: Never Smokeless Tobacco: Never Tobacco Cessation:Counseling Given: Not Answered Alcohol Use Standard Drinks/Week Comments Never 0 (1 standard drink = 0.6 oz pur e alcohol) Comments Unknown Sex and Gender Information Value Date Recorded Sex Assigned at Not on file 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 Gender Identity Not on file Sexual Orientation Not on file Last Filed Vital Signs Vital Sign Reading [...] Mass Index 36.05 03/29/2025 10:16 AM CDT Plan of Treatment Upcoming Encounters Date Type Department Care Team (Late st Contact Info) Description 04/12/2025 4:30 PM CDT Telephone Check Up [facility] Oncology and Hematology [facility] [address] [facility] [address] [place] [address] Angelo Fuchs MD [address] [facility] [address] [place] [address] Health Maintenance Due Date Last Done Comments DTAP/TDAP/TD VACCINES (1 - Tdap) 1978 BREAST CANCER SCREENING 1999 COLORECTAL SCREENING 2004 Colorectal Cancer Screening 2004 FIT-DNA Q 3 years 2004 FIT/FOBT Q 1 year 2004 Flex Sig/CT Colonography Q 5 years 2004 PNEUMOCOCCAL VACCINE 50+ YEARS (1 of 1 - PCV) 08/19/19 10 ZOSTER VACCINE (1 of 2) 2009 Medicare Advantage ([place]) Prev entative Visit/Annual Wellness Visit 07/01/2024 OSTEOPOROSIS SCREENING 2024 INFLUENZA VACCINE (#1) 2025 RSV VACCINE (60+ or ) (1 - 1-dose 75+ series) 2034 Insurance Care Teams Punch Machine Hand Relationship Specialty Start Date End Date Jony Miles MD [address] [place] [address] PCP - General 05/13/02
--- OUTSIDE RECORDS SUMMARY | 2025-03-29 11:46 | XMS_ITS | Clinical Summary ---
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
--- OUTSIDE RECORDS SUMMARY | 2025-03-29 11:46 | XMS_ITS | Encounter Summary ---
Author Organization [facility] Address 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 Gender Identity Not on file Sexual Orientation Not on file documented as of this encounter Plan of Treatment Upcoming Encounters Date Type Department Care Team (Late st Contact Info) Description 04/12/2025 4:30 PM CDT Telephone Check Up [facility] Oncology and Hematology - [place] [address] [facility] [address] [place] [address] Angelo Fuchs MD [address] [facility] [address] [place] [address] documented as of this encounter Visit Diagnoses Diagnosis Other affections of shoulder region, not elsewhere classified- Primary documented in this encounter Care Teams Pool Coordinator Relationship Specialty Start Date End Date Jony Miles MD [address] [place] [address] PCP - General 05/13/02 documented as of this encounter
--- OUTSIDE RECORDS SUMMARY | 2025-03-29 11:46 | XMS_ITS | Clinical Summary ---
Author Organization [facility] Care Team Providers Care Tunnel Heading Supervisor Name Role Phone Unavailable Primary Care Provider Unavailabl e Social History Tobacco Use Types Packs/Day Years Used Date Smoking Tobacco: Never Assessed Comments Unknown Sex and Gender Information Value Date Recorded Sex Assigned at Not on file Legal Sex Female 3:11 PM ROUTE SUPERVISOR Gender Identity Not on file Sexual [...] (1 of 2) 2009 Influenza Immunization (#1) 2025 SARS-COV-2 Immunization ( - 2023- season) 2025 Respiratory Syncytial Virus (RSV) Immunization (Adult) [...]
[2025-03-29 12:59] LABS: CRP < 0.5 mg/dL (<1.0)
[2025-03-29 13:11] LABS: Iron 94 ug/dL (37-170)
[2025-03-29 13:20] LABS: Percent Iron Saturation 26 % (20-50)
[2025-03-29 13:53] LABS: Ferritin 53.80 ng/mL (11.1-264)
== END 2025-03-29 11:08 | disposition home or self-care (01) ==
PROVIDERS: PCP Family Medicine; Visit Provider Internal Medicine Hematology & Oncology
DX: D72.820 Lymphocytosis (symptomatic) (principal); R71.8 Other abnormality of red blood cells
CPT/HCPCS: 36415; 82668; 82728; 83540; 83550; 85025; 85652; 86140; 88184

== ENCOUNTER 2025-05-05 09:06 | Outpatient (CLI) | payer MEDICARE, SELFPAY ==
--- OUTSIDE RECORDS SUMMARY | 2025-05-05 09:38 | XMS_ITS | Clinical Summary ---
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
--- OUTSIDE RECORDS SUMMARY | 2025-05-05 09:38 | XMS_ITS | Clinical Summary ---
Author Organization [facility] Tsering Madden Address [address] [place] [address] Care Team Providers Care Site Engineer Name Role Phone Jony Miles MD Primary Care Provider [phone] Allergies Active Allergy Reactions Criticality Noted Date [...] Encounters Date Type Department Care Team Description 04/28/2025 External Device Data STL ABSTRACTION Provider, Abstract 04/27/2025 External Device Data STL ABSTRACTION Provider, Abstract 04/21/2025 External Device Data ST[facility] ABSTRACTION Provider, Abstract 04/20/2025 External Device Data STL ABSTRACTION Provider, Abstract 04/12/2025 4:30 PM CDT Telephone Check Up [facility] Oncology and Hematology - [place] [address] [place] [address] Angelo Fuchs MD Lymphocytosis (Primary Dx) 04/06/2025 Abstract [facility] Oncology and Hematology - [place] [address] [place] [id number] Angelo Fuchs MD 04/01/2025 Orders Only [facility] Oncology and Hematology - [address] [place] [id number] Angelo Fuchs MD 03/31/2025 Orders Only [facility] Oncology and Hematology - [place] [address] Angelo Fuchs MD 03/30/2025 External Device Data STL ABSTRACTION Provider, Abstract 03/30/2025 External Device Data ST[facility] ABSTRACTION Provider, Abstract 03/30/2025 External Device Data STL ABSTRACTION Provider, Abstract 03/30/2025 Orders Only [facility] Oncology and Hematology - [place] [address] [place] [address] Angelo Fuchs MD 03/29/2025 10:30 AM CDT Office Visit [facility] Oncology and Hematology - [address] [place] [address] Angelo Fuchs MD Microcytosis (Primary Dx); Lymphocytosis [...] on file 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 Gender Identity Not on file Sexual [...] Care Team (Late st Contact Info) Description 10/13/2025 11:00 AM CDT Office Visit [facility] Oncology and Hematology [facility] [address] [facility] [address] [place] [address] Angelo Fuchs MD [address] [facility] [address] [place] [address] Health Maintenance Due Date Last Done Comments Pre-Diabetes and Diabetes Screening 1959 DTAP/TDAP/TD VACCINES (1 - Tdap) 1978 BREAST [...] ) (1 - 1-dose 75+ series) 2034 Procedures Procedure Name Priority Date/Time Associated Diagnosis Comments CBC WITH AUTODIFFERENTIAL Routine 2024 2:00 PM CDT ERYTHROPOIETIN LEVEL Routine 03/29/2025 12:55 PM CDT FLOW CYTOMETRY REPORT Routine 03/29/2025 12:31 PM CDT HEMOGLOBIN ELECTROPHORESIS Routine 03/29 12:25 PM CDT from Last 3 Months Results * CBC WITH AUTODIFFERENTIAL (03/29/2025 2:00 PM CDT) Blood us Angelo Fuchs MD HEMATOLOGY ORDERABLES Final Res ult * ERYTHROPOIETIN LEVEL (03/29/2025 12:55 PM CDT) Blood us Angelo Fuchs MD CHEMISTRY ORDERABLES Final Resu lt * FLOW CYTOMETRY REPORT (03/29/2025 12:31 PM CDT) us Angelo Fuchs MD PATHOLOGY/CYTOLOGY ORDERABLES F inal Result * HEMOGLOBIN ELECTROPHORESIS (03/29/2025 12:25 PM CDT) Blood us Angelo Fuchs MD CHEMISTRY ORDERABLES Final Resu lt from Last 3 Months Insurance [facility] Address: [facility] [id number] [place] [address] Care Teams Site Engineer Relationship Specialty Start Date End Date Jony Miles MD [address] [place] [address] [facility] - General 05/13/02
--- OUTSIDE RECORDS SUMMARY | 2025-05-05 09:38 | XMS_ITS | Clinical Summary ---
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
--- OUTSIDE RECORDS SUMMARY | 2025-05-05 09:38 | XMS_ITS | Encounter Summary ---
Author Organization [facility] Address 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 Gender Identity Not on file Sexual Orientation Not on file documented as of this encounter Plan of Treatment Upcoming Encounters Date Type Department Care Team (Late st Contact Info) Description 10/13/2025 11:00 AM CDT Office Visit [facility] Oncology and Hematology - [place] [address] [place] [address] [facility] [address] [place] [address] Angelo Fuchs MD [address] [facility] [address] [place] [address] documented as of this encounter Visit Diagnoses Diagnosis Other affections of shoulder region, not elsewhere classified- Primary documented in this encounter Care Teams Journeyman Sheet Metal Worker Relationship Specialty Start Date End Date Jony Miles MD [address] [place] [address] PCP - General 05/13/02 documented as of this encounter
[2025-05-05 10:20] LABS: Alanine Aminotransferase 22 U/L (6-35); Albumin Level 4.4 g/dL (3.5-5.1); Alkaline Phosphatase 53 U/L (38-126); Anion Gap 7 mmol/L (4-12); Aspartate Amino Transferase 25 U/L (14-36); Bilirubin,Total 0.6 mg/dL (0.2-1.3); Blood Urea Nitrogen 12 mg/dL (7-17); Calcium 9.5 mg/dL (8.4-10.2); Carbon Dioxide 28 mmol/L (22-30); Chloride 103 mmol/L (98-107); Cholesterol 169 mg/dL (0-200); Estimated Glomerular Filt Rate > 60; Glucose 113 mg/dL (65-110); HDL Direct 52 mg/dL; Potassium 3.3 mmol/L (3.4-5.0); Sodium 138 mmol/L (137-145); Total Protein 8.1 g/dL (6.3-8.2); Triglycerides 107 mg/dL (<150)
[2025-05-05 11:39] LABS: Hemoglobin A1C 6.3 % (<5.7)
== END 2025-05-05 09:07 | disposition home or self-care (01) ==
LOC: ANHLAB 09:07
PROVIDERS: PCP Student in an Organized Health Care Education/Training Program; Visit Provider Student in an Organized Health Care Education/Training Program
DX: E78.2 Mixed hyperlipidemia (principal); I10 Essential (primary) hypertension; E11.9 Type 2 diabetes mellitus without complications
CPT/HCPCS: 36415; 80053; 80061; 83036

== ENCOUNTER 2025-06-07 09:03 | Outpatient (CLI) | payer MEDICARE, SELFPAY ==
[2025-06-07 09:54] LABS: Anion Gap 5 mmol/L (4-12); Blood Urea Nitrogen 18 mg/dL (7-17); Calcium 9.6 mg/dL (8.4-10.2); Carbon Dioxide 28 mmol/L (22-30); Chloride 106 mmol/L (98-107); Estimated Glomerular Filt Rate > 60; Glucose 103 mg/dL (65-110); Potassium 4.0 mmol/L (3.4-5.0); Sodium 139 mmol/L (137-145)
== END 2025-06-07 09:04 | disposition home or self-care (01) ==
LOC: ANHLAB 09:04
PROVIDERS: PCP Student in an Organized Health Care Education/Training Program; Visit Provider Student in an Organized Health Care Education/Training Program
DX: E87.6 Hypokalemia (principal)
CPT/HCPCS: 36415; 80048

== ENCOUNTER 2025-06-21 11:24 | Outpatient (CLI) | payer MEDICARE, SELFPAY ==
[2025-06-21 12:56] LABS: Alanine Aminotransferase 24 U/L (6-35); Albumin Level 4.4 g/dL (3.5-5.1); Alkaline Phosphatase 52 U/L (38-126); Anion Gap 8 mmol/L (4-12); Aspartate Amino Transferase 26 U/L (14-36); Bilirubin,Total 0.7 mg/dL (0.2-1.3); Blood Urea Nitrogen 17 mg/dL (7-17); Calcium 10.0 mg/dL (8.4-10.2); Carbon Dioxide 29 mmol/L (22-30); Chloride 103 mmol/L (98-107); Estimated Glomerular Filt Rate > 60; Glucose 106 mg/dL (65-110); Potassium 4.2 mmol/L (3.4-5.0); Sodium 140 mmol/L (137-145); Total Protein 8.1 g/dL (6.3-8.2)
--- OUTSIDE RECORDS SUMMARY | 2025-06-21 13:18 | XMS_ITS | Clinical Summary ---
Author Organization [facility] Tsering Madden Address [address] [place] [address] Care Team Providers Care Rn Nicu Name Role Phone Jony Miles MD Primary Care Provider [phone] Allergies Active Allergy Reactions Criticality Noted Date [...] Encounters Date Type Department Care Team Description 05/18/2025 External Device Data STL ABSTRACTION Provider, Abstract 04/28/2025 External Device Data STL ABSTRACTION Provider, Abstract 04/27/2025 External Device Data ST[facility] ABSTRACTION Provider, Abstract 04/21/2025 External Device Data STL ABSTRACTION Provider, Abstract 04/20/2025 External Device Data STL ABSTRACTION Provider, Abstract 04/12/2025 4:30 PM CDT Telephone Check Up [facility] Oncology and Hematology - [place] [address] [place] [address] Angelo Fuchs MD Lymphocytosis (Primary Dx) 04/06/2025 Abstract [facility] Oncology and Hematology - [place] [address] [place] [address] Angelo Fuchs MD 04/01/2025 Orders Only [facility] Oncology and Hematology - [place] [address] [place] [address] Angelo Fuchs MD 03/31/2025 Orders Only [facility] Oncology and Hematology - [place] [address] [place] [address] Angelo Fuchs MD 03/30/2025 External Device Data STL ABSTRACTION Provider, Abstract 03/30/2025 External Device Data STL ABSTRACTION Provider, Abstract 03/30/2025 External Device Data STL ABSTRACTION Provider, Abstract 03/30/2025 Orders Only [facility] Oncology and Hematology - [place] [address] [place] [address] Angelo Fuchs MD 03/29/2025 10:30 AM CDT Office Visit [facility] Oncology and Hematology - [place] [address] [place] [address] Angelo Fuchs MD Microcytosis (Primary Dx); Lymphocytosis [...] on file Legal Sex Female 4: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 ALUMNI 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
--- OUTSIDE RECORDS SUMMARY | 2025-06-21 13:18 | XMS_ITS | Clinical Summary ---
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
--- OUTSIDE RECORDS SUMMARY | 2025-06-21 13:18 | XMS_ITS | Encounter Summary ---
Author Organization [facility] Address 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 Gender Identity Not on file Sexual Orientation Not on file documented as of this encounter Plan of Treatment Upcoming Encounters Date Type Department Care Team (Late st Contact Info) Description 10/13/2025 11:00 AM CDT Office Visit [facility] Oncology and Hematology - [place] [address] [facility] [address] [place] [address] Angelo Fuchs MD [address] [facility] [address] [place] [address] documented as of this encounter Visit Diagnoses Diagnosis Other affections of shoulder region, not elsewhere classified- Primary documented in this encounter Care Teams Power Cleaner Operator Relationship Specialty Start Date End Date Jony Miles MD [address] [place] [address] PCP - General 05/13/02 documented as of this encounter
--- OUTSIDE RECORDS SUMMARY | 2025-06-21 13:18 | XMS_ITS | Clinical Summary ---
Author Organization [employer] [facility] Address [address] [place] [address] Care Team Providers Care Lead Front Desk Agent Name Role Phone No, Pcp LOAN ADMINISTRATOR Primary Care Provider Unavailabl e Social History Tobacco Use Types Packs/Day Years Used Date Smoking Tobacco: Never Assessed Comments Unknown Sex and Gender Information Value Date Recorded Sex Assigned at Not on file Legal Sex Female 6:14 PM EST Gender Identity Not on file Sexual Orientation Not on file Plan of Treatment Not on file Medical Devices Not on file Care Teams Lead Front Desk Agent Relationship Specialty Start Date End Date No, Pcp, LOAN ADMINISTRATOR N/A Do not use PCP - General Family Medicine 07/11/20
--- OUTSIDE RECORDS SUMMARY | 2025-06-21 13:18 | XMS_ITS | Clinical Summary ---
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 Address: [address] Care Teams Knowledge Manager Relationship Specialty Start Date End Date Stephanie Sam MD PCP - General Family Medicine 04/13/19
== END 2025-06-21 11:25 | disposition home or self-care (01) ==
PROVIDERS: PCP Student in an Organized Health Care Education/Training Program; Visit Provider Student in an Organized Health Care Education/Training Program
DX: E78.2 Mixed hyperlipidemia (principal); I10 Essential (primary) hypertension
CPT/HCPCS: 36415; 80053